=== PATIENT | male | born 1970 | race Caucasian/White ===

== ENCOUNTER 2023-07-01 13:31 | Emergency (ER) | payer BC ==
[~2023-07-01] VITALS: Ht 167.6 cm; Wt 70.3 kg
[2023-07-01 14:21] VITALS: BP 113/71; PULSE 57; RESP 17; TEMP 97.4; O2SAT 98
[2023-07-01] MEDS ORDERED: IBUPROFEN 600 MG TAB PO ONE (15:05)
[2023-07-01] MEDS ORDERED: IBUP-2213 PO (16:41)
[2023-07-01 16:48] VITALS: BP 113/71; PULSE 57; RESP 17; TEMP 97.4; O2SAT 98
== END 2023-07-01 16:48 | disposition home or self-care (01) ==
LOC: MED 13:31
DX: S46.912A Strain of unspecified muscle, fascia and tendon at shoulder and upper arm level, left arm, initial encounter (principal); Z79.1 Long term (current) use of non-steroidal anti-inflammatories (NSAID); W01.0XXA Fall on same level from slipping, tripping and stumbling without subsequent striking against object, initial encounter; Y92.89 Other specified places as the place of occurrence of the external cause; Y93.89 Activity, other specified; Y99.8 Other external cause status
CPT/HCPCS: 73030; 99283